=== PATIENT | male | born 1945 | race Caucasian/White ===

== ENCOUNTER 2016-05-18 12:17 | Emergency (ER) | payer MEDICARE, BC ==
[~2016-05-18] VITALS: Ht 170.2 cm; Wt 100.0 kg
[~2016-05-18 12:17] MED LIST: AMLO5TAB96 PO; BACT800T5 PO; FISH1000 PO; NEBI5 PO; OYST500T71 PO; PRAV40TA2 PO; TAB-TAB PO
[2016-05-18 12:21] VITALS: BP 159/71; PULSE 69; RESP 20; TEMP 98.9; O2SAT 98
[2016-05-18] MEDS ORDERED: SODIUM CHLOR 0.9% 1000 ML INJ 1,000 ML IV SCH (12:23)
--- NOTE | 2016-05-18 12:24 | PD ---
HPI Chief Complaint: lightheadedness Time Seen by Provider: 12:24 Travel History International Travel<30 days: No Contact w/Intl Traveler<30days: No History of Present Illness HPI 70-year-old male with history of hypertension, hyperlipidemia presents to the emergency department by EMS for evaluation of lightheadedness and dizziness after falling while exercising. The patient states that he was at the gym playing pickle ball and was in the middle of playing his third game of pickle ball when he could tell he was feeling weak and fatigued. States that he thinks he tripped over his own feet landing on his left outstretched hand and his right knee. States that once he was down he noticed that he was feeling lightheaded, nauseous and diaphoretic. States that this persisted for about 45 minutes. States he did not lose consciousness. States that he is just now feeling back to normal. He denies any episodes of chest pain, shortness of breath, difficulty breathing, headache, numbness or tingling, vomiting. Denies any history of heart disease or [place]. Last stress test was about 5 years ago. He has never had a heart catheterization. States he has a remote history of smoking. Denies alcohol use. PCP is in [facility]. No other complaints. PFSH Past Medical History Heart Rhythm Problems: No Cancer: No Cardiac Catheterization: No Cardiovascular Problems: No High Cholesterol: Yes Congestive Heart Failure: No Diabetes: No Hepatitis: No Hiatal Hernia: No Heparin Induced Thrombocytopen: No Herniated Disk: Yes Hypertension: Yes Neurologic: Yes ("CYST ON THE TOP OF MY SPINE" DX 2013 WITH MRI) Respiratory: Yes (SLEEP APNEA-CPAP) Immunizations Current: Yes Sleep Apnea: Yes (WEARS CPAP "ONCE IN AWHILE") Thyroid Disease: No Past Surgical History Abdominal Surgery: Yes (LEFT INGUINAL HERNIA REPAIR) Cholecystectomy: Yes Coronary Artery Bypass Graft: No Pacemaker: No Other Surgery: Yes Social History Alcohol Use: No Tobacco Use: No (QUIT 1984) Substance Use: No Allergies-Medications (Allergen,Severity, Reaction): Coded Allergies: Penicillin (Verified Allergy, Severe, facial swelling/skin peels, 05/18/16) Reported Meds & Prescriptions Reported Meds & Active Scripts Active Bactrim DS (Sulfamethoxazole-Trimethoprim DS) 1 Tab Tab 1 Tab PO BID Reported Calcium 500 (Calcium Carbonate) 500 Mg Tab 500 Mg PO DAILY Multivitamin (Multivitamins) 1 Tab Tab 1 Tab PO DAILY Pravastatin Sodium 40 Mg Tab 40 Mg PO DAILY Bystolic 5 Mg Tab (Nebivolol) 5 Mg Tab 5 Mg PO DAILY Fish Oil 1,000 Mg Cap 1,000 Mg PO DAILY Norvasc (Amlodipine Besylate) 5 Mg Tab 5 Mg PO DAILY Review of Systems Except as stated in HPI: all other systems reviewed are Neg Physical Exam Narrative GENERAL: Well-nourished and well-developed pleasant male patient in no acute distress. SKIN: Warm and dry. HEAD: Normocephalic and atraumatic. EYES: No injection, drainage, or hyphema noted. PERRLA. EOMI. ENT: No nasal drainage noted. Oropharynx is clear. NECK: Supple and the trachea is midline. CARDIOVASCULAR: Regular rate and rhythm. RESPIRATORY: Breath sounds are equal bilaterally with no accessory muscle use, wheezing, rhonchi, or crackles. GASTROINTESTINAL: Abdomen is soft, non-tender, and nondistended. MUSCULOSKELETAL: No obvious deformities, swelling, cyanosis, or ecchymosis is present throughout the upper and lower extremities. Patient has full range of motion without any signs of neurovascular compromise. NEUROLOGICAL: Awake, alert, and oriented. Normal speech and gait. Cranial nerves are grossly intact. Data Data Last Documented VS Vital Signs Date Time Temp Pulse Resp B/P Pulse Ox O2 Delivery O2 Flow Rate FiO2 05/18/16 15:39 80 18 131/68 97 05/18/16 12:26 Nasal Cannula 2 05/18/16 12:21 98.9 Orders Electrocardiogram (05/18/16 12:23) Ckmb (Isoenzyme) Profile (05/18/16 12:23) Complete Blood Count With Diff (05/18/16 12:23) Comprehensive Metabolic Panel (05/18/16 12:23) Magnesium (Mg) (05/18/16 12:23) Prothrombin Time / Inr (Pt) (05/18/16 12:23) Act Partial Throm Time (Ptt) (05/18/16 12:23) Troponin I (05/18/16 12:23) Chest, Single Ap (05/18/16 12:23) Ecg Monitoring (05/18/16 12:23) Iv Access Insert/Monitor (05/18/16 12:23) Oximetry (05/18/16 12:23) Aspirin Chew (Aspirin Chew) (05/18/16 12:30) Sodium Chloride 0.9% Flush (Ns Flush) (05/18/16 12:30) Sodium Chlor 0.9% 1000 Ml Inj (Ns 1000 M (05/18/16 12:23) Knee, Complete (4vws) (05/18/16 12:24) Wrist, Complete ([id number]) (05/18/16 12:24) CKMB (05/18/16 12:30) CKMB% (05/18/16 12:30) Labs Laboratory Tests Test 05/18/16 05/18/16 12:30 12:38 White Blood Count 8.1 TH/MM3 Red Blood Count 4.87 MIL/MM3 Hemoglobin 14.7 GM/DL Hematocrit 41.7 % Mean Corpuscular Volume 85.6 FL Mean Corpuscular Hemoglobin 30.2 PG Mean Corpuscular Hemoglobin 35.3 % Concent Red Cell Distribution Width 13.5 % Platelet Count 228 TH/MM3 Mean Platelet Volume 7.5 FL Neutrophils (%) (Auto) 71.5 % Lymphocytes (%) (Auto) 18.4 % Monocytes (%) (Auto) 7.1 % Eosinophils (%) (Auto) 1.7 % Basophils (%) (Auto) 1.3 % Neutrophils # (Auto) 5.8 TH/MM3 Lymphocytes # (Auto) 1.5 TH/MM3 Monocytes # (Auto) 0.6 TH/MM3 Eosinophils # (Auto) 0.1 TH/MM3 Basophils # (Auto) 0.1 TH/MM3 CBC Comment DIFF FINAL Differential Comment Sodium Level 139 MEQ/L Potassium Level 4.2 MEQ/L Chloride Level 104 MEQ/L Carbon Dioxide Level 24.2 MEQ/L Anion Gap 11 MEQ/L Blood Urea Nitrogen 11 MG/DL Creatinine 1.10 MG/DL Estimat Glomerular Filtration 66 ML/MIN Rate Random Glucose 101 MG/DL Calcium Level 9.1 MG/DL Magnesium Level 2.0 MG/DL Total Bilirubin 0.4 MG/DL Aspartate Amino Transf 41 U/L (AST/SGOT) Alanine Aminotransferase 41 U/L (ALT/SGPT) Alkaline Phosphatase 79 U/L Total Creatine Kinase 135 U/L Creatine Kinase MB 2.0 NG/ML Troponin I LESS THAN 0.02 NG/ML Total Protein 7.5 GM/DL Albumin 3.9 GM/DL Prothrombin Time 10.9 SEC Prothromb Time International 1.0 RATIO Ratio Activated Partial 21.1 SEC Thromboplast Time MDM Medical Decision Making Medical Screen Exam Complete: Yes Emergency Medical Condition: Yes Differential Diagnosis Presyncope versus Anginal equivalent versus ACS versus dehydration versus electrolyte abnormality versus fatigue Narrative Course 70-year-old male presents to the emergency department for evaluation of lightheadedness, weakness, nausea and diaphoresis after exercising. Patient is afebrile, vital signs are stable. Physical examination is unremarkable. IV access is obtained, labs were drawn and sent. Patient is placed on telemetry and pulse oximetry monitoring. He is given IV fluids and aspirin. EKG shows sinus rhythm with first-degree AV block, no acute ST elevations or depressions. CBC is unremarkable. CMP is unremarkable. Troponin is less than 0.02. Coags are unremarkable. Chest x-ray is negative for any Abnormality. Chest x-ray is negative for any acute abnormalities. X-ray right knee is negative for any acute abnormalities. Wrist x-ray initially read by me as negative was read by radiologist as possible small avulsion fracture off the triquetral. Patient was noted to be stable and without complaint while here in the emergency department. States he is feeling much better and is eager to go home. His labs and imaging are all reassuring and therefore he is stable for discharge to follow=up with his PCP. Discussed that should he develop any worsening symptoms or have chest pain or shortness of breath he needs to return immediately to ED. Patient verbalizes understanding and agreement with treatment plan. I discussed the case with my attending physician Dr. Hinds who is aware of the patients history, physical examination findings, and treatment plan. Unfortunately, the patient had already been discharged by the time the radiologist's report was reviewed for the wrist x-ray reading for possible triquetral fracture. He did not have a splint placed. He needs a volar splint and follow-up with a hand or senior training specialist. The patient is called by charge nurse and given this information and instructed to return to the emergency department for a splint. Diagnosis Primary Impression: Pre-syncope Referrals: Primary Care Physician Patient Instructions: General Instructions, Near Syncope (ED) Additional Instructions: Follow-up with your Primary Care Physician. Return to the ED for any acute worsening of symptoms. Med/Other Pt SpecificInfo: No Change to Meds Disposition: 01 DISCHARGE HOME Condition: Stable Trisha Ortega May 18, 2016 12:24
[2016-05-18 12:26] VITALS: O2SAT 99
[2016-05-18] MEDS ORDERED: SODIUM CHLORIDE 0.9% FLUSH 10 ML FLUSH IVF PRN (12:30)
[2016-05-18] MEDS ORDERED: ASPIRIN 81 MG CHEW TAB PO ONE (12:30)
[2016-05-18 12:50] LABS: AUTOMATED NEUTROPHIL # 5.8 TH/MM3 (1.8-7.7); BASOPHIL # 0.1 TH/MM3 (0-0.2); BASOPHIL % 1.3 % (0.0-2.0); EOSINOPHIL # 0.1 TH/MM3 (0-0.4); EOSINOPHIL % 1.7 % (0.0-4.0); HEMATOCRIT 41.7 % (39.0-51.0); HEMO FLAGS DIFF FINAL; LYMPH % 18.4 % (9.0-44.0); LYMPHOCYTE # 1.5 TH/MM3 (1.0-4.8); MEAN CELL VOLUME 85.6 FL (80.0-100.0); MEAN CORPUSCULAR HEMOGLOBIN 30.2 PG (27.0-34.0); MEAN CORPUSCULAR HGB CONC 35.3 % (32.0-36.0); MONO % 7.1 % (0.0-8.0); NEUT % 71.5 % (16.0-70.0); PLATELET COUNT 228 TH/MM3 (150-450); RED BLOOD COUNT 4.87 MIL/MM3 (4.50-5.90); RED CELL DISTRIBUTION WIDTH 13.5 % (11.6-17.2); WHITE BLOOD COUNT 8.1 TH/MM3 (4.0-11.0)
[2016-05-18 13:06] LABS: APTT (PATIENT) 21.1 SEC (24.3-30.1); PROTHROMBIN TIME - PATIENT 10.9 SEC (9.8-11.6)
[2016-05-18 13:35] LABS: ALKALINE PHOSPHATASE 79 U/L (45-117); ALT (GPT) 41 U/L (12-78); ANION GAP 11 MEQ/L (5-15); AST (GOT) 41 U/L (15-37); BICARBONATE 24.2 MEQ/L (21.0-32.0); BLOOD UREA NITROGEN 11 MG/DL (7-18); CHLORIDE 104 MEQ/L (98-107); CREATINE KINASE 135 U/L (39-308); GLOMERULAR FILTRATION RATE 66 ML/MIN (>89); SODIUM (NA) 139 MEQ/L (136-145); TOTAL BILIRUBIN ADULT 0.4 MG/DL (0.2-1.0)
[2016-05-18 13:40] LABS: POTASSIUM 4.2 MEQ/L (3.5-5.1)
--- NOTE | 2016-05-18 14:16 | RADRPT ---
EXAM DATE/TIME: 05/18/2016 12:50 [facility] COMPARISON: CHEST SINGLE AP, January 29, 2014, 11:40. INDICATIONS : Trip and fall. Possible syncope. MEDICAL HISTORY : None. SURGICAL HISTORY : None. ENCOUNTER: Initial ACUITY: 1 day PAIN SCORE: 0/10 LOCATION: Bilateral chest FINDINGS: A single view of the chest demonstrates the lungs to be symmetrically, but under aerated without evid ence of mass, infiltrate or effusion. The cardiomediastinal contours are unremarkable. Osseous stru ctures are intact. CONCLUSION: Hypoinflation with no acute cardiopulmonary process. Luis Cortes MD on May 18, 2016 at 14:14 Board Certified Radiologist. This report was verified electronically.
--- NOTE | 2016-05-18 14:18 | RADRPT ---
EXAM DATE/TIME: 05/18/2016 12:53 [facility] COMPARISON: No previous studies available for comparison. INDICATIONS : Trip and fall. Right knee pain. MEDICAL HISTORY : None. SURGICAL HISTORY : None. ENCOUNTER: Initial ACUITY: 1 day PAIN SCORE: 4/10 LOCATION: Right knee, patella FINDINGS: Four view examination of the right knee demonstrates no evidence of fracture or dislocation. Bony mi neralization is normal. Some early loss of joint space in the medial tibiofemoral region characterist ic of mild osteoarthritis. There appears to be a very small patellar effusion. CONCLUSION: 1. Mild osteoarthritic changes with a tiny suprapatellar effusion. 2. No acute fracture. Luis Cortes MD on May 18, 2016 at 14:15 Board Certified Radiologist. This report was verified electronically.
--- NOTE | 2016-05-18 14:23 | RADRPT ---
EXAM DATE/TIME: 05/18/2016 12:58 [facility] COMPARISON: No previous studies available for comparison. INDICATIONS : Trip and fall. Left wrist pain. MEDICAL HISTORY : None. SURGICAL HISTORY : None. ENCOUNTER: Initial ACUITY: 1 day PAIN SCORE: 4/10 LOCATION: Left wrist FINDINGS: Three view examination of the left wrist demonstrates marginal erosions along the first ray involving the articulating surface of the trapezium and adjacent scaphoid. On the oblique image, there may be a small avulsion fracture off the triquetral. Remaining osseous structures are intact. CONCLUSION: 1. Possible small avulsion fracture off the triquetral. 2. Marginal erosions at the scaphotrapezium articulation. Findings are concerning for possible gouty arthritis. Luis Cortes MD on May 18, 2016 at 14:17 Board Certified Radiologist. This report was verified electronically.
[2016-05-18 15:39] VITALS: BP 131/68
--- NOTE | 2016-05-19 11:17 | EKG ---
Date Performed: 05/18/2016 Time Performed: 12:31:47 PTAGE: 70 years EKG: Sinus rhythm WITH FIRST DEGREE AV BLOCK POSSIBLE RIGHT VENTRICULAR CONDUCTION DELAY ABNORMAL ECG PREVIOUS TRACING : 01/29/2014 11.51 DOCTOR: Parish Thorpe Interpretating Date/Time 05/19/2016 11:15:34
== END 2016-05-18 16:21 | disposition home or self-care (01) ==
LOC: NEPC 12:17
DX: R55 Syncope and collapse (principal); S69.92XA Unspecified injury of left wrist, hand and finger(s), initial encounter; E78.00 Pure hypercholesterolemia, unspecified; I10 Essential (primary) hypertension; G47.30 Sleep apnea, unspecified; Z87.891 Personal history of nicotine dependence; I44.0 Atrioventricular block, first degree; W18.30XA Fall on same level, unspecified, initial encounter; Y93.69 Activity, other involving other sports and athletics played as a team or group; Y92.39 Other specified sports and athletic area as the place of occurrence of the external cause; Y99.8 Other external cause status
CPT/HCPCS: 71010; 73110; 73564; 80053; 82550; 82552; 83735; 84484; 85025; 85610; 85730; 93005; 99284; J7030

== ENCOUNTER 2017-12-02 09:47 | Observation (INO) ==
--- NOTE | 2017-12-02 11:32 | ED ---
HPI General Chief complaint: Dizziness Stated complaint: cold symptoms Time Seen by Provider: 12/02/17 11:11 History of Present Illness HPI narrative: 72-year-old male with history of hypertension and hyperlipidemia presents for evaluation of dizziness. Symptoms started this morning. He reports that he woke up with bad dreams at 2 AM and he felt dizzy when he stood up. He describes it as a lightheadedness which is reproduced when standing and improved when he is lying down. He denies any vertigo or room spinning sensation, he reports that he has had vertigo in the past and this does not feel similar. He reports that he more feels like he is going to pass out. He denies any actual syncope. During review of systems he does report that he has had intermittent past 2 weeks but none currently. He reports that he had nausea this morning but none currently. Denies chest pain, shortness of breath , palpitations, vomiting, abdominal pain, fevers, chills. Symptoms are moderate. He reports that he has had a normal appetite. He has been playing pickle ball on a daily basis but he feels that he is hydrating well. No other complaints. Related Data Home Medications Medication Instructions Recorded Confirmed gabapentin 300 mg PO HS 12/02/17 12/02/17 nebivolol [Bystolic] 2.5 mg PO DAILY 12/02/17 12/02/17 pravastatin mg PO DAILY 12/02/17 temazepam 15 mg PO HS PRN 12/02/17 12/02/17 Allergies Allergy/AdvReac Type Severity Reaction Status Date / Time penicillin G Allergy Severe facial Verified 12/02/17 10:14 swelling/skin peels Review of Systems ROS: all other systems reviewed are negative [facility] Medical History Medical History Hypercholesterolemia (Acute) Hypertension (Acute) Insomnia (Acute) Sleep apnea (Acute) Vertigo (Acute) Social History Social History Substance History: No History of Abuse Smoking Status: Former smoker How Often Do You Have a Drink Containing Alcohol: Monthly or less Recent Out of Country Travel within the Last 8 Weeks: No Immunization History Tetanus Immunization: >5 Years Hx Influenza Vaccine This Season: No Exam Narrative Exam Narrative: GENERAL: Well-developed well-nourished male in no acute distress SKIN: Warm and dry. HEAD: Atraumatic. Normocephalic. EYES: Pupils equal and round. No scleral icterus. No injection or drainage. ENT: No nasal bleeding or discharge. Mucous membranes pink and moist. NECK: Trachea midline. No JVD. CARDIOVASCULAR: Regular rate and rhythm. No murmur appreciated. RESPIRATORY: No accessory muscle use. Clear to auscultation. Breath sounds equal bilaterally. GASTROINTESTINAL: Abdomen soft, non-tender, nondistended. Hepatic and splenic margins not palpable. MUSCULOSKELETAL: No obvious deformities. No clubbing. No cyanosis. No edema. NEUROLOGICAL: Awake and alert. No obvious cranial nerve deficits. Motor grossly within normal limits. Normal speech. Course Initial Documented Vital Signs Temperature 97.7 F 12/02/17 09:57 Pulse Rate 67 12/02/17 09:57 Respiratory Rate 16 12/02/17 09:57 Blood Pressure 144/67 H 12/02/17 09:57 Pulse Oximetry 97 12/02/17 09:57 Last Documented Vital Signs Temperature 97.7 F 12/02/17 09:57 Pulse Rate 60 12/02/17 10:19 Respiratory Rate 17 12/02/17 10:19 Blood Pressure 159/79 H 12/02/17 10:19 Pulse Oximetry 98 12/02/17 10:19 Medical Decision Making [facility] Narrative Medical decision making narrative: The patient was placed on ECG monitoring pulse oximetry. A 12 EKG was obtained revealing sinus rhythm, rate of 61, first -degree AV block which is unchanged from previous EKG in April 2016. Lab work, chest x-ray, CT brain ordered. Chest x-ray reveals cardiomegaly, no acute findings. CT the brain reveals no acute ab normality. Lab work is reassuring. The nurse help the patient stand up and this reproduced his lightheadedness and he was unable to ambulate. Therefore the patient will be admitted for observation. Discussed with Dr. Cummings who is agreeable. Medical Screen Exam Complete: Yes Emergency Medical Condition: Yes Differential Diagnosis Differential Diagnosis: Orthostatic hypotension, electrolyte abnormality, dehydration, vertigo, hypoglycemia Lab Data Result diagrams: 12/02/17 11:00 12/02/17 11:00 Lab Results 12/02/17 12/02/17 Range/Units 11:00 11:00 WBC 7.9 (4.0-11.0) th/mm3 RBC 4.91 (4.50-5.90) mil/mm3 Hgb 15.0 (13.0-17.0) gm/dL Hct 44.0 (39.0-51.0) % MCV 89.8 (80.0-100.0) fL MCH 30.6 (27.0-34.0) pg MCHC 34.1 (32.0-36.0) % RDW 14.2 (11.6-17.2) % Plt Count 217 (150-450) th/mm3 MPV 7.6 (7.0-11.0) fL Neut % (Auto) 62.1 (16.0-70.0) % Lymph % (Auto) 24.8 (9.0-44.0) % [place] % (Auto) 9.0 H (0.0-8.0) % Eos % (Auto) 3.5 (0.0-4.0) % Baso % (Auto) 0.6 (0.0-2.0) % Neut # (Auto) 4.9 (1.8-7.7) th/mm3 Lymph # (Auto) 1.9 (1.0-4.8) th/mm3 [place] # (Auto) 0.7 (0.0-0.9) th/mm3 Eos # (Auto) 0.3 (0.0-0.4) th/mm3 Baso # (Auto) 0.0 (0.0-0.2) th/mm3 WBC Differential . Differential Comment Auto diff final Sodium 143 (136-145) meq/L Potassium 4.0 (3.5-5.1) meq/L Chloride 105 (98-107) meq/L Carbon Dioxide 27.8 (21.0-32.0) meq/L Anion Gap 10 (5-15) meq/L BUN 12 (7-18) mg/dL Creatinine 1.00 (0.60-1.30) mg/dL Estimated GFR 73 L (>89) mL/min Random Glucose 95 (74-106) mg/dL Calcium 9.0 (8.5-10.1) mg/dL Total Creatine Kinase 93 (39-308) U/L Troponin I Less than 0.02 L (0.02-0.05) ng/mL Imaging Data Radiologist's impression: Head CT 12/02/17 11:24 CONCLUSION: 1. Mild cerebral atrophy. 2. Minimal periventricular and subcortical white matter small vessel ischemic changes. 3. No acute infarct, acute hemorrhage, midline shift or extra-axial fluid collections. . Chest X-Ray 12/02/17 11:25 CONCLUSION: 1. Cardiomegaly. 2. No focal infiltrate or pulmonary vascular congestion. 3. Degenerative changes and scoliosis of the thoracolumbar spine. Discharge Plan Discharge Disposition Patient Disposition: 30 Still Patient Discharge Condition Condition: Stable Discharge Details Diagnosis: Near syncope Physicians Team ED Provider: Maryuri Brown ED Midlevel Provider: Lan Bernard Primary Care Provider: Srikanth Nichole Rxs /Orders / Referrals /Forms Prescriptions: No Action pravastatin 10 mg Tablet PO DAILY RF: 0 temazepam 15 mg Capsule 15 mg PO HS PRN (Reason: Insomnia) RF: 0 gabapentin 300 mg Capsule 300 mg PO HS RF: 0 nebivolol [Bystolic] 2.5 mg Tablet 2.5 mg PO DAILY RF: 0 Status ED Status: With Doctor
[2017-12-02 12:00] LABS: Baso % (Auto) 0.6 % (0.0-2.0); Eos # (Auto) 0.3 th/mm3 (0.0-0.4); Eos % (Auto) 3.5 % (0.0-4.0); Lymph # (Auto) 1.9 th/mm3 (1.0-4.8); Lymph % (Auto) 24.8 % (9.0-44.0); Mean Corpuscular HGB Conc 34.1 % (32.0-36.0); Mean Corpuscular Hemoglobin 30.6 pg (27.0-34.0); Mean Corpuscular Volume 89.8 fL (80.0-100.0); Mean Platelet Volume 7.6 fL (7.0-11.0); Mono # (Auto) 0.7 th/mm3 (0.0-0.9); Neut # (Auto) 4.9 th/mm3 (1.8-7.7); Neut % (Auto) 62.1 % (16.0-70.0); Platelet Count 217 th/mm3 (150-450); Red Blood Count 4.91 mil/mm3 (4.50-5.90); Red Cell Distribution Width 14.2 % (11.6-17.2); White Blood Count 7.9 th/mm3 (4.0-11.0)
[2017-12-02] MEDS ORDERED: Sodium Chlor 0.9% Inj 500 ML IV.SIG SCH (12:00)
[2017-12-02 12:15] LABS: Anion Gap 10 meq/L (5-15); Blood Urea Nitrogen 12 mg/dL (7-18); Carbon Dioxide 27.8 meq/L (21.0-32.0); Chloride 105 meq/L (98-107); Glomerular Filtration Rate 73 mL/min (>89); Glucose,Random 95 mg/dL (74-106); Sodium 143 meq/L (136-145)
[2017-12-02 12:20] LABS: Creatine Kinase 93 U/L (39-308)
--- NOTE | 2017-12-02 12:26 | XR ---
EXAM DATE: 12/02/2017 11:25 AM EDT AGE/SEX: 72 years / Male INDICATIONS: Cough. CLINICAL DATA: This is the patient's initial encounter. Patient reports that signs and symptoms have been present for 3 days and indicates a pain score of 0/10. MEDICAL/SURGICAL HISTORY: None. None. COMPARISON: [facility] [place], [place]/18/[place]. . FINDINGS: The heart is enlarged. The pulmonary vasculature is normal. The lungs are clear. Degenerative changes and scoliosis of the thoracolumbar spine are noted. CONCLUSION: 1. Cardiomegaly. 2. No focal infiltrate or pulmonary vascular congestion. 3. Degenerative changes and scoliosis of the thoracolumbar spine. Electronically signed by: Guanakito Kebede MD 12/02/2017 12:25 PM EDT
--- NOTE | 2017-12-02 12:34 | CT ---
EXAM DATE: 12/02/2017 11:47 AM EDT AGE/SEX: 72 years / Male INDICATIONS: Dizziness. CLINICAL DATA: This is the patient's initial encounter. Patient reports that signs and symptoms have been present for 1 day and indicates a pain score of 2/10. MEDICAL/SURGICAL HISTORY: Hypertension. None. RADIATION DOSE: 56.35 CTDI (mGy) COMPARISON: No prior exams available for comparison. TECHNIQUE: CT of the head without contrast. Using automated exposure control and adjustment of the mA and/or kV according to patient size, radiation dose was kept as low as reasonably achievable to ob tain optimal diagnostic quality images. DICOM format image data is available electronically for revi ew and comparison. FINDINGS: Cerebrum: Mild cerebral atrophy is noted. Minimal periventricular and subcortical white matter small vessel ischemic changes are noted. No evidence of midline shift, mass lesion, hemorrhage or acute in farction. No extraaxial fluid collections are seen. Posterior Fossa: The cerebellum and brainstem are intact. The 4th ventricle is midline. The cerebe llopontine angle is unremarkable. Extracranial: The visualized portion of the orbits is intact. Skull: The calvaria is intact. No evidence of skull fracture. CONCLUSION: 1. Mild cerebral atrophy. 2. Minimal periventricular and subcortical white matter small vessel ischemic changes. 3. No acute infarct, acute hemorrhage, midline shift or extra-axial fluid collections. . Electronically signed by: Guanakito Kebede MD 12/02/2017 12:32 PM EDT
[2017-12-02] MEDS ORDERED: Acetaminophen 325 MG Tablet PO PRN (16:29)
[2017-12-02] MEDS ORDERED: Dextrose 50% in Water 50 ML Vial IV.PUSH PRN (16:31)
--- NOTE | 2017-12-02 16:32 | P.HP ---
History of Present Illness Service: Hospitalist Primary Care Physician: Srikanth Nichole Chief Complaint: Dizziness, diaphoresis, nausea History of Present Illness: This is a 72-year-old male with a past medical history significant for hypertension, dyslipidemia and degenerative disc disease of the cervical and lumbar spine who presents to [facility] ED with complaints of presyncopal episode. Patient stated that he woke up sometime early this morning after having a bad dream and felt dizzy. He states he got up to go to the bathroom and the dizziness was worse and he felt like he was going to pass out. When he looked in the mirror, he saw that he was very sweaty. He reports associated nausea and shortness of breath. He denies any complaints of chest pain or palpitations. He denies any slurred speech, facial droop or focal weakness. Patient continued to have issues with dizziness especially with walking decided to go to urgent care in [place] who recommended that he come to the ED. Patient states his blood pressure was around 136 systolic when he was at the urgent care facility. Patient denies any headache with episode this morning but states that for the past week he has had new onset right-sided headaches although he is not had a headache for the past 2 days. He also reports blurry vision for the past week although he denies any vision changes this morning. He reports that yesterday he played a hard game of pickle ball and as result was having more muscle cramping. He decided to take an extra gabapentin yesterday afternoon in addition to his regular nighttime dose. He also states that he took an ibuprofen PM and a temazepam before going to bed last night. He states he has been eating and drinking his normal amount. He denies any history of recent illness. He does report that he has had some sinus pressure/ congestion. Patient states that he has had vertigo before but this feels different. He is not able to tell me if he feels like he is spinning or the room is spinning. In the ED, head CT was obtained and did not show any acute intracranial process. His blood pressure 144/67. Orthostatics were negative. HR in 60s. CBC and BMP are unremarkable. Troponin is less than 0.02. Chest x-ray shows no acute cardiopulmonary process but does reveal cardiomegaly. Patient states that just a short while ago he got up to go to the restroom and became dizzy again. Review of Systems All other systems reviewed negative except as stated in HPI PMFSH - History History Provided By: Patient, Family Member - Medical History Medical History: Medical History (Last Reviewed 12/02/17 @ 16:15 by Hawa Sanchez) Hypercholesterolemia Hypertension Insomnia Sleep apnea Vertigo - Surgical History Surgical History: Surgical History (Last Updated 12/02/17 @ 16:13 by Hawa Sanchez) H/O hernia repair - Family History Family History: Family History (Last Updated 12/02/17 @ 16:15 by Hawa Sanchez) Other Family history normal - Social History I have reviewed the patient's Social History: Yes - Tobacco History Smoking Status: Former smoker - Alcohol History How Often Do You Have a Drink Containing Alcohol: Monthly or less - Substance Use History Substance History: Past History - Travel History Recent Travel Out of the Country Within the Last 8 Weeks: No - Immunization History Tetanus Immunization: >5 Years Hx Influenza Vaccine This Season: No Medications and Allergies Active Medications: Active Medications Sodium Chloride (Ns Inj) 500 mls @ 0 mls/hr IV.SIG BOLUS JOHN Last Infusion: 12/02/17 13:23 Dose: Infused Sodium Chloride (Ns Inj) 1,000 mls @ 75 mls/hr IV.CONT .[id number] JOHN Nebivolol (Bystolic) 2.5 mg PO DAILY JOHN Pravastatin Sodium (Pravachol) 10 mg PO DAILY JOHN Sodium Chloride (Ns Flush) 2 ml IV.FLUSH PRN PRN PRN Reason: FLUSH AFTER USING IV ACCESS Last Admin: 12/02/17 12:10 Dose: 2 ml Allergies Allergy/AdvReac Type Severity Reaction Status Date / Time penicillin G Allergy Severe facial Verified 12/02/17 10:14 swelling/skin peels Home Medications Medication Instructions Recorded Confirmed Type gabapentin 300 mg PO HS 12/02/17 12/02/17 History nebivolol [Bystolic] 2.5 mg PO DAILY 12/02/17 12/02/17 History pravastatin mg PO DAILY 12/02/17 History temazepam 15 mg PO HS PRN 12/02/17 12/02/17 History Exam Vital signs: Vital Signs 12/02/17 09:57 12/02/17 10:19 12/02/17 14:04 Temperature 97.7 F Pulse Rate 67 60 67 Respiratory Rate 16 17 17 Blood Pressure 144/67 H 159/79 H 131/61 Pulse Oximetry 97 98 98 12/02/17 15:43 Temperature Pulse Rate 71 Respiratory Rate Blood Pressure Pulse Oximetry Intake & Output 12/01/17 12/02/17 12/02/17 18:59 06:59 18:59 Intake Total 500 / 500 Balance 500 / 500 Weight 107.048 kg Intake: IV 500 / 500 NS Inj 500 ML @ Wide Open IV. 500 / 500 SIG BOLUS JONH Rx#:[id number] Narrative: GENERAL: Well-developed well-nourished overweight male patient in no acute distress. Awake and alert. Pleasant and talkative. SKIN: Warm and dry. HEAD: Atraumatic. Normocephalic. EYES: Pupils equal and round. No scleral icterus. No injection or drainage. ENT: No nasal bleeding or discharge. Mucous membranes pink and moist. NECK: Trachea midline. CARDIOVASCULAR: Regular rate and rhythm. No murmur auscultated. RESPIRATORY: No accessory muscle use. Clear to auscultation. Breath sounds equal bilaterally. GASTROINTESTINAL: Abdomen soft, non-tender, nondistended. Hepatic and splenic margins not palpable. +Umbilical hernia. MUSCULOSKELETAL: Extremities without clubbing, cyanosis, or edema. No obvious deformities. NEUROLOGICAL: Awake and alert. No obvious cranial nerve deficits. Motor grossly within normal limits. Five out of 5 muscle strength in the arms and legs. Normal speech. PSYCHIATRIC: Appropriate mood and affect; insight and judgment normal. Results - Labs CBC & Chem 7: 12/02/17 11:00 12/02/17 11:00 Labs: Laboratory Results - last 24 hr 12/02/17 12/02/17 11:00 11:00 WBC 7.9 RBC 4.91 Hgb 15.0 Hct 44.0 MCV 89.8 MCH 30.6 MCHC 34.1 RDW 14.2 Plt Count 217 MPV 7.6 Neut % (Auto) 62.1 Lymph % (Auto) 24.8 [place] % (Auto) 9.0 H Eos % (Auto) 3.5 Baso % (Auto) 0.6 Neut # (Auto) 4.9 Lymph # (Auto) 1.9 [place] # (Auto) 0.7 Eos # (Auto) 0.3 Baso # (Auto) 0.0 WBC Differential . Differential Comment Auto diff final Sodium 143 Potassium 4.0 Chloride 105 Carbon Dioxide 27.8 Anion Gap 10 BUN 12 Creatinine 1.00 Estimated GFR 73 L Random Glucose 95 Calcium 9.0 Total Creatine Kinase 93 Troponin I Less than 0.02 L - Imaging Impressions Head CT 12/02/17 11:24 CONCLUSION: 1. Mild cerebral atrophy. 2. Minimal periventricular and subcortical white matter small vessel ischemic changes. 3. No acute infarct, acute hemorrhage, midline shift or extra-axial fluid collections. . Chest X-Ray 12/02/17 11:25 CONCLUSION: 1. Cardiomegaly. 2. No focal infiltrate or pulmonary vascular congestion. 3. Degenerative changes and scoliosis of the thoracolumbar spine. Caprini VTE Risk Assessment Caprini VTE Risk Assessment: Moderate/High Risk (score >= 2) Caprini Risk Assessment Model: Point Value = 1 Point Value = 2 Point Value = 3 Point Value = 5 Age 41-60 Minor surgery BMI > 25 kg/m2 Swollen legs Varicose veins or History of unexplained or recurrent spontaneous Oral contraceptives or hormone replacement Sepsis (< 1 month) Serious lung disease, including pneumonia (< 1 month) Abnormal pulmonary function Acute myocardial infarction Congestive heart failure (< 1 month) History of inflammatory bowel disease Medical patient at bed rest Age 61-74 Arthroscopic surgery Major open surgery (> 45 min) Laparoscopic surgery (> 45 min) Malignancy Confined to bed (> 72 hours) Immobilizing plaster cast Central venous access Age >= 75 History of VTE Family history of VTE Factor V Leiden Prothrombin [id number] Lupus anticoagulant Anticardiolipin antibodies Elevated serum homocysteine Heparin-induced thrombocytopenia Other congenital or acquired thrombophilia Stroke (< 1 month) Elective arthroplasty Hip, pelvis, or leg fracture Acute spinal cord injury (< 1 month) Prophylaxis Regimen: Total Risk Factor Score Risk Level Prophylaxis Regimen 0-1 Low Early ambulation 2 Moderate Order ONE of the following: *Sequential Compression Device (SCD) *Heparin 5000 units SQ BID 3-4 Higher Order ONE of the following medications: *Heparin 5000 units SQ TID *Enoxaparin/Lovenox 40 mg SQ daily (WT < 150 kg, CrCl > 30 mL/min) *Enoxaparin/Lovenox 30 mg SQ daily (WT < 150 kg, CrCl > 10-29 mL/min) *Enoxaparin/Lovenox 30 mg SQ BID (WT < 150 kg, CrCl > 30 mL/min) AND/OR *Sequential Compression Device (SCD) 5 or more Highest Order ONE of the following medications: *Heparin 5000 units SQ TID (Preferred with Epidurals) *Enoxaparin/Lovenox 40 mg SQ daily (WT < 150 kg, CrCl > 30 mL/min) *Enoxaparin/Lovenox 30 mg SQ daily (WT < 150 kg, CrCl > 10-29 mL/min) *Enoxaparin/Lovenox 30 mg SQ BID (WT < 150 kg, CrCl > 30 mL/min) AND *Sequential Compression Device (SCD) Assessment and Plan - Plan 72-year-old male with a past medical history significant for hypertension, dyslipidemia and degenerative disc disease of the cervical and lumbar spine who presents to [facility] ED with complaints of presyncopal episode. Presyncopal episode, suspect multifactorial in light of increased physical activity, polypharmacy and likely dehydration Hx of Vertigo Head CT neg for acute intracranial process Orthostatics negative -neuro checks -Obtain echocardiogram and carotid ultrasound -Holter monitor -initial trop neg, continue to trend -obtain B12 level and TSH -Monitor on cardiac telemetry -Repeat orthostatic BP measurements -Fall precautions -Hold home dose of gabapentin and temazepam -Consult neurology, appreciate assistance -IVF -PT eval/BPPV -trial of meclizine Hypertension -Resume home medication Bystolic 2.5mg daily -Continue to monitor heart rate and blood pressure Dyslipidemia -Resume home dose of statin therapy DVT prophylaxis -Bilateral SCD/DANISHA hose Code Status: FULL Discussed Condition With: patient, Dr. Cummings Discharge Planning: Likely will be discharged in the next 24-48 hours
[2017-12-02 16:51] LABS: Bilirubin,Urine Negative (Negative); Clarity,Urine Clear (Clear); Color,Urine Yellow (Yellw/Straw); Glucose,Urine (UA) Negative (Negative); Leukocyte Esterase,Urine Moderate (Negative); Mucus,Urine Few /lpf (Occasional); Nitrite,Urine Negative (Negative); Specific Gravity,Urine 1.009 (1.002-1.035); Squamous Epithelial Cell,Urine <1 /hpf (0-5)
[2017-12-02 17:34] LABS: Amphetamine Screen,Urine Neg (Neg); Barbiturate Screen,Urine Neg (Neg); Cannabinoid Screen,Urine Neg (Neg); Cocaine Screen,Urine Neg (Neg)
--- NOTE | 2017-12-02 17:48 | ECHRPT ---
Indication: Syncope CONCLUSIONS No definite regional wall motion abnormalities are present. Normal left ventricular size. Wall thickness is measured at the upper limits of normal. The left ventricular systolic function is normal with an estimated ejection fraction in the range of 55-60%. There is trace tricuspid valve regurgitation. The estimated pulmonary arterial pressure is 17 mmHg. BP: / HR: Rhythm: MEASUREMENTS (Male / Female) Normal Values Technical Quality:Technically difficult study 2D ECHO LV Diastolic Diameter PLAX 3.9 cm 4.2 - 5.9 / 3.9 - 5.3 cm LV Systolic Diameter PLAX 2.6 cm IVS Diastolic Thickness 1.0 cm 0.6 - 1.0 / 0.6 - 0.9 cm LVPW Diastolic Thickness 1.1 cm 0.6 - 1.0 / 0.6 - 0.9 cm LV Relative Wall Thickness 0.5 RV Internal Dim ED PLAX 2.8 cm LVOT Diameter 2.1 cm Aortic Root Diameter 3.3 cm LA Systolic Diameter LX 2.8 cm 3.0 - 4.0 / 2.7 - 3.8 cm M-MODE AV Cusp Separation MM 2.2 cm DOPPLER AV Peak Velocity 84.4 cm/s AV Peak Gradient 2.8 mmHg Mitral E Point Velocity 63.4 cm/s Mitral A Point Velocity 58.7 cm/s Mitral E to A Ratio 1.1 LV E' Lateral Velocity 8.7 cm/s Mitral E to LV E' Lateral Ratio 7.3 LV E' Septal Velocity 6.8 cm/s Mitral E to LV E' Septal Ratio 9.3 TR Peak Velocity 172.0 cm/s TR Peak Gradient 11.8 mmHg Right Atrial Pressure 5.0 mmHg Pulmonary Artery Systolic Pressu 16.8 mmHg Right Ventricular Systolic Press 16.8 mmHg PV Peak Velocity 73.3 cm/s PV Peak Gradient 2.1 mmHg FINDINGS LEFT VENTRICLE No definite regional wall motion abnormalities are present. Normal left ventricular size. Wall thickness is measured at the upper limits of normal. The left ventricular systolic function is normal with an estimated ejection fraction in the range of 55-60%. RIGHT VENTRICLE Normal right ventricular size and systolic function. LEFT ATRIUM The left atrial size is normal. RIGHT ATRIUM The right atrial size is normal. ATRIAL SEPTUM Normal atrial septal thickness without atrial level shunting by limited color doppler interrogation. AORTA The aortic root and proximal ascending aorta are normal in size on limited imaging. MITRAL VALVE Structurally normal mitral valve. No mitral valve stenosis or regurgitation. AORTIC VALVE No aortic valve stenosis or regurgitation. Trileaflet aortic valve. TRICUSPID VALVE There is trace tricuspid valve regurgitation. The estimated pulmonary arterial pressure is 17 mmHg. PULMONARY VALVE No pulmonary valve regurgitation or stenosis. VESSELS The inferior vena cava is normal in size. PERICARDIUM No pericardial effusion. Luis Felipe Romero MD (Electronically Signed) Final Date:02 December 2017 17:48
[2017-12-02] MEDS: Sod Chloride 0.9% Inj 1,000 ML IV.CONT SCH (17:53)
--- NOTE | 2017-12-02 18:00 | US ---
EXAM DATE: 12/02/2017 12:00 AM EDT AGE/SEX: 72 years / Male INDICATIONS: Dizziness. CLINICAL DATA: This is the patient's initial encounter. Patient reports that signs and symptoms have been present for 2 days and indicates a pain score of 0/10. MEDICAL/SURGICAL HISTORY: Hypercholesterolemia. Hypertension. Insomnia. Sleep apnea. Vertigo . None. COMPARISON: . VELOCITY PARAMETERS: ICA/CCA Ratio: Right 0.9 , Left 1.1 ICA: Right 93 cm/sec, Left 104 cm/sec CCA: Right 105 cm/sec, Left 95 cm/sec ECA: Right 114 cm/sec, Left 87 cm/sec Vertebral: Right 80 cm/sec antegrade, Left 39 cm/sec antegrade FINDINGS: Antegrade flow is seen in both vertebral arteries. There is mild atherosclerotic plaquing at the origin of both ICAs without any significant stenosis. Elevated flow velocities and ICA/CCA ratios have been found to correlate with increased degrees of vessel stenosis, calculated as percentage of diameter relative to a normal segment of distal ICA. CONCLUSION: No evidence for hemodynamically significant stenosis. Electronically signed by: Mulugeta Mayberry MD 12/02/2017 5:59 PM EDT
[2017-12-02 18:10] LABS: Opiate Screen,Urine Neg (Neg)
[2017-12-02 19:03] LABS: Thyroid Stimulating Hormone 0.692 uIU/mL (0.358-3.740)
--- NOTE | 2017-12-02 19:59 | MB ---
cc: Torsten Smith MD, PhD DATE: 12/02/2017 REASON FOR CONSULTATION: Presyncope. HISTORY OF PRESENT ILLNESS: Ms. Price is a 72-year-old man who woke up early this morning, got up, felt lightheaded, and broke out into perspiration. This symptom lasted throughout the morning. He presented to the ER. Systolic pressure was around 136. He still feels somewhat dizzy, had no focal deficits, no headaches. Had a similar episode several years ago. He states he did have a positive tilt table test at that time. PAST MEDICAL HISTORY: Dyslipidemia, degenerative disk disease, hypertension, hypercholesterolemia, sleep apnea, vertigo. CURRENT MEDICATIONS: 1. Tylenol. 2. Antivert. 3. Bystolic. 4. Zofran. 5. Pravachol. NEUROLOGICAL EXAMINATION: VITAL SIGNS: Blood pressure is 159/79 standing, sitting, is 131/61, pulse 60, respirations are 17. Higher cortical functions are normal. Cranial nerves are intact. Motor exam, normal. Strength and tone of all groups. There is no drift. Reflexes are symmetric. IMAGING STUDIES: CT of the brain reveals chronic changes, no acute change present. LABORATORY DATA: White count 7900, hemoglobin 15, hematocrit 44%, platelet count 217,000. Sodium is 143, potassium 4.0, chloride 105, CO2 27.8. BUN is 12, creatinine 1, GFR 73, glucose 95, calcium 9. TSH 0.692. Urinalysis, pH is 6, specific gravity 1.009. 8 WBCs are present. Tox screen negative. IMPRESSION: Presyncope, possible vasovagal reaction, rule out cardiogenic syncope. I doubt this is a primary neurologic event. The symptom does not sound consistent with seizure or transient ischemic attack. PLAN: Check orthostatic blood pressure and pulse, consider cardiology consult. Torsten Smith MD, PhD NORIS/matilde , 07:28 PM , 07:35 PM
[2017-12-02] MEDS: Senna/Docusate Sodium 8.6/50 MG Tablet PO SCH (21:05)
[2017-12-02] MEDS ORDERED: Melatonin 5 MG Tablet PO ONE (22:47)
[2017-12-03 03:09] LABS: Anion Gap 10 meq/L (5-15); Blood Urea Nitrogen 12 mg/dL (7-18); Calcium 8.5 mg/dL (8.5-10.1); Carbon Dioxide 27.5 meq/L (21.0-32.0); Chloride 107 meq/L (98-107); Glomerular Filtration Rate 78 mL/min (>89); Glucose,Random 123 mg/dL (74-106); Potassium 3.8 meq/L (3.5-5.1); Sodium 144 meq/L (136-145)
[2017-12-03 03:34] LABS: Vitamin B12 903 pg/mL (193-986)
[2017-12-03 07:56] LABS: Baso % (Auto) 0.5 % (0.0-2.0); Eos # (Auto) 0.3 th/mm3 (0.0-0.4); Eos % (Auto) 3.4 % (0.0-4.0); Hematocrit 40.7 % (39.0-51.0); Hemoglobin 13.9 gm/dL (13.0-17.0); Lymph % (Auto) 21.6 % (9.0-44.0); Mean Corpuscular Hemoglobin 30.1 pg (27.0-34.0); Mean Corpuscular Volume 88.5 fL (80.0-100.0); Mean Platelet Volume 7.3 fL (7.0-11.0); Mono # (Auto) 0.7 th/mm3 (0.0-0.9); Mono % (Auto) 7.7 % (0.0-8.0); Neut # (Auto) 6.2 th/mm3 (1.8-7.7); Neut % (Auto) 66.8 % (16.0-70.0); Platelet Count 217 th/mm3 (150-450); Red Cell Distribution Width 13.8 % (11.6-17.2); White Blood Count 9.2 th/mm3 (4.0-11.0)
[2017-12-03] MEDS: Sod Chloride 0.9% Inj 1,000 ML IV.CONT SCH (07:58)
[2017-12-03 08:37] VITALS: O2SAT 95
--- NOTE | 2017-12-03 08:51 | P.PN ---
Subjective Interval history: Follow-up for dizziness, near syncope. Patient reports overall feeling better today. He states he has been able to ambulate without difficulty. He does report mild continued "fogginess", however much improved compared to yesterday. He denies any headache, visual changes, or near syncopal episodes. He wants to go home. Denies any chest pain, palpitations, or shortness of breath. He states he follows with inspector scales Dr. Lewis and has an appointment in December. He does complains of some constipation, requesting Senokot. 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 He denies any dysuria or fevers/chills. Physical Exam Vital signs: Vital Signs 12/02/17 09:57 12/02/17 10:19 12/02/17 14:04 Temperature 97.7 F Pulse Rate 67 60 67 Respiratory Rate 16 17 17 Blood Pressure 144/67 H 159/79 H 131/61 Pulse Oximetry 97 98 98 12/02/17 15:43 12/02/17 20:00 12/03/17 00:00 Temperature 98.1 F 97.9 F Pulse Rate 71 74 66 Respiratory Rate 20 19 Blood Pressure 126/65 117/68 Pulse Oximetry 94 L 94 L 12/03/17 08:00 Temperature 97.9 F Pulse Rate 66 Respiratory Rate 16 Blood Pressure 112/63 Pulse Oximetry 95 Intake & Output 12/02/17 12/03/17 12/03/17 18:59 06:59 18:59 Intake Total 980 / 980 1000 / 1000 Output Total 820 / 820 Balance 980 / 980 -820 / -820 1000 / 1000 Weight 107.048 kg 107.12 kg Intake: IV 500 / 500 1000 / 1000 NS Inj 1,000 ML @ 75 mls/hr IV. 1000 / 1000 CONT .[id number] JOHN Rx#:[id number] NS Inj 500 ML @ Wide Open IV. 500 / 500 SIG BOLUS JOHN Rx#:[id number] Oral 480 / 480 Output: Urine 820 / 820 Other: # Voids 1 Date of Last Bowel Movement 11/30/17 11/30/17 # Bowel Movements 0 Narrative: GENERAL: Well-nourished, well-developed pleasant elderly male patient in NAD. Seen ambulating the unit without difficulty. SKIN: Warm and dry. No rash. HEENT: Normocephalic. Atraumatic. Pupils equal and round. Mucous membranes pink and moist. NECK: Supple. Trachea midline. CARDIOVASCULAR: Regular rate and rhythm. No murmur appreciated. RESPIRATORY: No accessory muscle use. Clear to auscultation. Breath sounds equal bilaterally. GASTROINTESTINAL: Abdomen soft, non-tender, nondistended. Normoactive bowel sounds x4. MUSCULOSKELETAL: No obvious deformities. Extremities without clubbing, cyanosis , or edema. NEUROLOGICAL: Awake and alert. No obvious cranial nerve deficits. Motor grossly within normal limits. Moving all extremities spontaneously. Normal speech. PSYCHIATRIC: Appropriate mood and affect; insight and judgment normal. Results - Labs CBC & Chem 7: 12/03/17 06:20 12/03/17 02:15 Laboratory Results - last 24 hr 12/02/17 12/02/17 12/02/17 11:00 11:00 15:00 WBC 7.9 RBC 4.91 Hgb 15.0 Hct 44.0 MCV 89.8 MCH 30.6 MCHC 34.1 RDW 14.2 Plt Count 217 MPV 7.6 Neut % (Auto) 62.1 Lymph % (Auto) 24.8 [place] % (Auto) 9.0 H Eos % (Auto) 3.5 Baso % (Auto) 0.6 Neut # (Auto) 4.9 Lymph # (Auto) 1.9 [place] # (Auto) 0.7 Eos # (Auto) 0.3 Baso # (Auto) 0.0 WBC Differential . Differential Comment Auto diff final Sodium 143 Potassium 4.0 Chloride 105 Carbon Dioxide 27.8 Anion Gap 10 BUN 12 Creatinine 1.00 Estimated GFR 73 L POC Glucose Random Glucose 95 Calcium 9.0 Total Creatine Kinase 93 Troponin I Less than 0.02 L Vitamin B12 TSH Urine Color Urine Clarity Urine pH Ur Specific [place] Urine Protein Urine Glucose (UA) Urine Ketones Urine Occult Blood Urine Nitrate Urine Bilirubin Urine Urobilinogen Ur Leukocyte Esterase Urine WBC Ur Squamous Epith Cells Urine Mucus Micro UA Comment Ur Microscopic Review Urine Culture Comments Urine Opiates Screen Neg Ur Barbiturates Screen Neg Ur Amphetamines Screen Neg U Benzodiazepines Scrn Neg Urine Cocaine Screen Neg U Cannabinoids Screen Neg Serum Alcohol 12/02/17 12/02/17 12/02/17 15:00 18:15 22:36 WBC RBC Hgb Hct MCV MCH MCHC RDW Plt Count MPV Neut % (Auto) Lymph % (Auto) [place] % (Auto) Eos % (Auto) Baso % (Auto) Neut # (Auto) Lymph # (Auto) [place] # (Auto) Eos # (Auto) Baso # (Auto) WBC Differential Differential Comment Sodium Potassium Chloride Carbon Dioxide Anion Gap BUN Creatinine Estimated GFR POC Glucose 116 H Random Glucose Calcium Total Creatine Kinase Troponin I Less than 0.02 L Vitamin B12 TSH 0.692 Urine Color Yellow Urine Clarity Clear Urine pH 6.0 Ur Specific [place] 1.009 Urine Protein Negative Urine Glucose (UA) Negative Urine Ketones Negative Urine Occult Blood Negative Urine Nitrate Negative Urine Bilirubin Negative Urine Urobilinogen Less than 2 Ur Leukocyte Esterase Moderate H Urine WBC 8 H Ur Squamous Epith Cells <1 Urine Mucus Few H Micro UA Comment Culture indicated Ur Microscopic Review Not Reportable Urine Culture Comments Culture indicated Urine Opiates Screen Ur Barbiturates Screen Ur Amphetamines Screen U Benzodiazepines Scrn Urine Cocaine Screen U Cannabinoids Screen Serum Alcohol 12/03/17 12/03/17 02:15 06:20 WBC 9.2 RBC 4.60 Hgb 13.9 Hct 40.7 MCV 88.5 MCH 30.1 MCHC 34.0 RDW 13.8 Plt Count 217 MPV 7.3 Neut % (Auto) 66.8 Lymph % (Auto) 21.6 [place] % (Auto) 7.7 Eos % (Auto) 3.4 Baso % (Auto) 0.5 Neut # (Auto) 6.2 Lymph # (Auto) 2.0 [place] # (Auto) 0.7 Eos # (Auto) 0.3 Baso # (Auto) 0.0 WBC Differential . Differential Comment Auto diff final Sodium 144 Potassium 3.8 Chloride 107 Carbon Dioxide 27.5 Anion Gap 10 BUN 12 Creatinine 0.94 Estimated GFR 78 L POC Glucose Random Glucose 123 H Calcium 8.5 Total Creatine Kinase Troponin I Less than 0.02 L Vitamin B12 903 TSH Urine Color Urine Clarity Urine pH Ur Specific [place] Urine Protein Urine Glucose (UA) Urine Ketones Urine Occult Blood Urine Nitrate Urine Bilirubin Urine Urobilinogen Ur Leukocyte Esterase Urine WBC Ur Squamous Epith Cells Urine Mucus Micro UA Comment Ur Microscopic Review Urine Culture Comments Urine Opiates Screen Ur Barbiturates Screen Ur Amphetamines Screen U Benzodiazepines Scrn Urine Cocaine Screen U Cannabinoids Screen Serum Alcohol Less than 3 - Imaging Impressions Carotid Doppler Study 12/02/17 00:00 CONCLUSION: No evidence for hemodynamically significant stenosis. Head CT 12/02/17 11:24 CONCLUSION: 1. Mild cerebral atrophy. 2. Minimal periventricular and subcortical white matter small vessel ischemic changes. 3. No acute infarct, acute hemorrhage, midline shift or extra-axial fluid collections. . Chest X-Ray 12/02/17 11:25 CONCLUSION: 1. Cardiomegaly. 2. No focal infiltrate or pulmonary vascular congestion. 3. Degenerative changes and scoliosis of the thoracolumbar spine. Assessment and Plan - Plan 72-year-old male with a past medical history significant for hypertension, dyslipidemia and degenerative disc disease of the cervical and lumbar spine who presents to [facility] ED with complaints of presyncopal episode. Presyncopal episode, suspect multifactorial in light of increased physical activity, polypharmacy and likely dehydration. Also has history of vertigo. Also possibility of vasovagal, patient has been constipated recently, and was straining on the toilet prior to episode. -Head CT reviewed and negative for acute intracranial process -Orthostatics negative -neuro checks, Fall precautions -Echocardiogram unremarkable with EF 55-60% -Carotid ultrasound unremarkable -Holter monitor in place -ACS ruled out with negative serial cardiac enzymes x3 -Vitamin B12 level and TSH wnl -Monitor on cardiac telemetry -Hold home dose of gabapentin and temazepam, counseled patient on avoiding sedating medications, possibly contributing -Consult neurology, appreciate assistance -S/p IVF -PT evaluation ordered -trial of meclizine 25mg po q8h -Symptoms much improved, patient has appt with his inspector scales Dr. Lewis in December, recommended to f/up sooner to consider event monitor -Stable for discharge Hypertension -Resume home medication Bystolic 2.5mg daily -Continue to monitor heart rate and blood pressure Dyslipidemia -Resume home dose of statin therapy DVT prophylaxis -Bilateral SCD/DANISHA hose Discharge Planning: Discharge today after PT eval and after holter completed. Discharge patient to home Condition on discharge: Stable Heart Healthy Diet as tolerated Ad Katherin activity Rx written: meclizine 25mg po q8h prn Follow-up with primary care physician, inspector scales Dr. Lewis, and neurology Dr. Smith
[2017-12-03] MEDS: Senna/Docusate Sodium 8.6/50 MG Tablet PO SCH (09:50)
[2017-12-03 13:23] LABS: Hemoglobin A1c 5.4 % (4.3-6.0)
--- NOTE | 2017-12-03 13:29 | ECG ---
Date Performed: 12/02/2017 Time Performed: 10:22:12 PTAGE: 72 years EKG: Sinus rhythm WITH FIRST DEGREE AV BLOCK POSSIBLE RIGHT VENTRICULAR CONDUCTION DELAY ABNORMAL ECG INTERPRETATION B ASED ON A DEFAULT AGE OF 38 YEARS PREVIOUS TRACING : 05/18/2016 12.31 DOCTOR: Jonathan Yañez Interpretating Date/Time 12/03/2017 13:17:47
[2017-12-03 17:00] VITALS: BP 139/67; PULSE 73; RESP 18; TEMP 97.5
--- NOTE | 2017-12-08 12:44 | HM ---
Date Performed: 12/02/2017 Time Performed: 18:45:00 HOOKUP DATE: 12/02/17 06:45:00 PM Fri ANALYSIS START TIME: 12/02/2017 6:50:00 PM ANALYSIS END TIME: 12/03/2017 3:06:53 PM PATIENT AGE: 72 PATIENT HEIGHT: 68 PATIENT WEIGHT: 236 DRUG LIST: ROOM G82 PATIENT DIAGNOSIS: NEAR SYNCOPE TEST NARRATIVE: The patient's average heart rate was 69 BPM. No episodes of tachycardia wer e noted. No episodes of bradycardia were noted. No pauses exceeding 2.0 seconds were noted. No ventricular ectopics were noted. 57 supraventricular ectopics, which represented < 1% of the t otal beat count, were noted. The highest supraventricular ectopic frequency occurred from 02:00 AM t o 03:00 AM Sat. During this time 11 SVE(s) occurred. No episodes of ST depression (defined as -1 .0 mm or more) were noted in channel 1. No episodes of ST depression (defined as -1.0 mm or more) we re noted in channel 2. No episodes of ST depression (defined as -1.0 mm or more) were noted in chann el 3. NO DIARY WAS RETURNED BY THE PATIENT TEST INTERPRETATION: Benign Holter monitoring. Signed by : Luis Felipe Romero
== END 2017-12-03 17:54 | disposition home or self-care (01) ==
LOC: NEPE 09:47 → NEDA 09:47 → NEPGCP 15:55
PROVIDERS: ADMIT Internal Medicine; ATTEND Internal Medicine